=== PATIENT | male | born 1980 | race Two or more races ===

== ENCOUNTER 2016-09-20 11:26 | Emergency (ER) | payer OTHER ==
[2016-09-20 11:36] VITALS: BP 128/88
--- NOTE | 2016-09-20 11:46 | EDM.PDOC ---
ED HPI GENERAL MEDICAL PROBLEM - General Chief Complaint: Laceration Stated Complaint: CUT HAND AT WORK Time Seen by Provider: 09/20/16 11:30 Source of Information: Reports: Patient, RN, RN Notes Reviewed History Limitations: Reports: No Limitations - History of Present Illness INITIAL COMMENTS - FREE TEXT/NARRATIVE: Patient presents to the ED at [facility] with a laceration to the medial right hand, adjacent to PIP joint index finger. Patient states this is a work- related injury. Patient states he was using a knife to cut off a zip tie, when the knife slipped, causing the laceration. No previous injury or trauma. No previous right hand surgeries. Patient denies any numbness, tingling, or paresthesia to the right upper extremity. No issues with ROM. Patient states his tetanus status is up to date. Onset: Today Onset Date: 09/20/16 Onset Time: 11:25 Right Hand Pain Score (Numeric/FACES): 3 - Related Data Allergies Allergy/AdvReac Type Severity Reaction Status Date / Time hydrocodone Allergy Hallucinati Verified 09/20/16 11:33 ons latex Allergy Rash Verified 09/20/16 11:32 moxifloxacin Allergy Rash Verified 09/20/16 11:33 Sulfa (Sulfonamide Allergy Hives Verified 09/20/16 11:33 Antibiotics) Home Meds: Home Meds . [No Known Home Meds] 09/20/16 [History] ED ROS GENERAL - Review of Systems Review Of Systems: See Below Constitutional: Denies: Fever, Chills, Weakness Respiratory: Denies: Shortness of Breath, Cough Cardiovascular: Denies: Chest Pain, Palpitations Skin: Reports: Wound (cut to right hand) Neurological: Reports: No Symptoms. Denies: Dizziness, Numbness, Paresthesia, Tingling ED EXAM, SKIN/RASH Exam: See Below Exam Limited By: No Limitations General Appearance: Alert, No Apparent Distress Respiratory/Chest: No Respiratory Distress, Lungs Clear, Normal Breath Sounds Cardiovascular: Regular Rate, Rhythm Peripheral Pulses: 2+: Radial (L), Radial (R) Neurological: Alert, Oriented Skin: Warm, Dry, Normal Color, No Rash, Wound/Incision Location, Skin: Upper Extremity, Right Characteristics: Other (1.9cm horizontal laceration to the medical side of the PIP joint right index finger; low grade venous ooze; clean; no evidence of infection; area will require surgical closure for optimal wound healing) ED SKIN PROCEDURES - Laceration/Wound Repair Right Medial Finger Lac/Wound length In cm: 1.9 Appearance: Subcutaneous, Linear, Clean Distal NVT: Neuro & Vascular Intact, No Tendon Injury Anesthetic Type: Local Local Anesthesia - Lidocaine (Xylocaine): 1% With EPI Local Anesthetic Volume: 5cc Skin Prep: Chlorhexidine (Hibiciens), Saline Exploration/Debridement/Repair: Wound Explored, in a Bloodless Field, Explored to Base, No Foreign Material Found, Wound Margins Revised Closed with: Sutures Suture Size: 4-0 # of Sutures: 5 Suture Type: Nylon, Interrupted, Simple Sterile Dressing Applied: Nurse Tetanus Status Addressed: Yes Complications: No Course - Vital Signs Last Recorded V/S: Last Vital Signs Temp 37.6 C 09/20/16 11:33 Pulse 99 09/20/16 11:33 Resp 18 09/20/16 11:33 BP 128/88 09/20/16 11:33 Pulse Ox 94 L 09/20/16 11:33 - Orders/Labs/Meds Meds: Medications Discontinued Medications Generic Name Dose Route Start Last Admin Trade Name Phan PRN Reason Stop Dose Admin Lidocaine/Epinephrine 20 ml 09/20/16 11:48 09/20/16 11:54 Xylocaine 1% With Epinephrine 1:100,000 INFILT 09/20/16 11:49 20 ml ONETIME ONE Administration Departure - Departure Time of Disposition: 12:02 Disposition: Home, Self-Care 01 Condition: Good Clinical Impression: Finger laceration Qualifiers: Encounter type: initial encounter Finger: index finger Damage to nail status: without damage Foreign body presence: without foreign body Laterality: right Qualified Code(s): S61.210A - Laceration without foreign body of right index finger without damage to nail, initial encounter - Discharge Information Instructions: Laceration Care, Adult, Sutured Wound Care Forms: ED Department Discharge Additional Instructions: 1. Keep area clean and dry 2. Leave bandage on for 24 hours, then remove 3. May shower/bathe as usual 4. Suture need to stay in place for 10 days 5. May return to this ER in 10 days or see your Primary provider for suture removal and wound recheck 6. Call with any questions or concerns - Problem List Review Problem List Initiated/Reviewed/Updated: Yes
[2016-09-20] MEDS ORDERED: Lidocaine 1% with EPINEPHrine 1:100,000 20 ML MDV INFILT ONE (11:48)
== END 2016-09-20 12:29 | disposition home or self-care (01) ==
LOC: VM.ED 11:26
DX: S61.210A Laceration without foreign body of right index finger without damage to nail, initial encounter (principal); Y99.0 Civilian activity done for income or pay; Z88.2 Allergy status to sulfonamides; Z88.1 Allergy status to other antibiotic agents; Z88.5 Allergy status to narcotic agent; Z91.040 Latex allergy status; W26.0XXA Contact with knife, initial encounter; Y92.69 Other specified industrial and construction area as the place of occurrence of the external cause
CPT/HCPCS: 12001; 99283